=== PATIENT | female | born 1955 | race Caucasian/White ===

== ENCOUNTER 2017-01-12 05:45 | Inpatient (IN) | payer OTHER ==
[2017-01-10 11:38] LABS: EOSINOPHILS # (AUTO) 0.1 K/uL (0-0.4); HEMOGLOBIN 14.3 g/dL (12.0-16.0); MONOCYTES # (AUTO) 0.5 K/uL (0.8-1.0); NEUTROPHILS # (AUTO) 3.3 K/uL (1.8-7.7); RED CELL DISTRIBUTION WIDTH 12.7 % (11.6-13.7)
[2017-01-10 11:42] LABS: BASOPHILS # (AUTO) 0.2 K/uL (0.00-0.22); BASOPHILS % (AUTO) 4.4 % (0.0-2.0); EOSINOPHILS % (AUTO) 2.3 % (0.0-4.0); HEMATOCRIT 43.7 % (36-48); LYMPHOCYTES # (AUTO) 1.5 K/uL (2.5-16.5); LYMPHOCYTES % (AUTO) 26.2 % (20.5-51.1); MEAN CORPUSCULAR HEMOGLOBIN 29 pg (27-31); MEAN CORPUSCULAR HGB CONC 33 g/dL (33-37); MEAN CORPUSCULAR VOLUME 88 fL (80-94); NEUTROPHILS % (AUTO) 58.1 % (42.2-75.2); PLATELET COUNT (AUTO) 205 K/uL (140-450); RED BLOOD CELL COUNT(AUTO) 4.99 MIL/uL (4.20-5.40); WHITE BLOOD COUNT (AUTO) 5.6 K/uL (4.8-10.8)
[2017-01-10 12:11] LABS: ALBUMIN 3.6 g/dL (3.4-5.0); CARBON DIOXIDE 31.1 mmol/L (21-32); CREATININE 0.9 mg/dL (0.6-1.3); POTASSIUM 4.1 mmol/L (3.5-5.1); TOTAL BILIRUBIN 0.6 mg/dL (0.0-1.0)
[~2017-01-12] VITALS: Ht 162.6 cm; Wt 95.3 kg
--- NOTE | 2017-01-12 08:48 | NUR ---
PATIENT HAS BEEN SCREENED AND CATEGORIZED LOW NUTRITION RISK. PATIENT WILL BE SEEN WITHIN 7 DAYS OF ADMISSION. 01/18/[address]
[2017-01-12] MEDS ORDERED: fentaNYL 0.05 MG/ML VIAL ONE (13:07)
[2017-01-12] MEDS ORDERED: MIDAZOLAM 2 MG/2 ML VIAL ONE ×2 (13:07→15:03)
[2017-01-12] MEDS ORDERED: ONDANSETRON 4 MG/2 ML VIAL IVP ONE (13:15)
[2017-01-12] MEDS ORDERED: PROPOFOL 200 MG/20 ML VIAL IV ONE (13:15)
[2017-01-12] MEDS ORDERED: SEVOFLURANE 250 ML BTL INH ONE (13:15)
[2017-01-12] MEDS ORDERED: ONDANSETRON 4 MG/2 ML VIAL IVP PRN ×2 (13:45)
[2017-01-12] MEDS ORDERED: IBUPROFEN 800 MG TAB PO PRN ×2 (13:45)
[2017-01-12] MEDS ORDERED: MORPHINE SULFATE 4 MG/ML SYR IM/IVP PRN ×2 (13:45)
[2017-01-12] MEDS ORDERED: ACETAMINOPHEN/CODEINE 300/30MG 1 TAB PO PRN (13:45)
[2017-01-12] MEDS ORDERED: MORPHINE SULFATE 4 MG/ML SYR ONE ×2 (14:12→14:48)
[2017-01-12] MEDS ORDERED: METOCLOPRAMIDE 10 MG/2 ML INJ VIAL IVP PRN (14:25)
[2017-01-12] MEDS ORDERED: MORPHINE SULFATE 4 MG/ML SYR IVP PRN ×2 (14:25)
[2017-01-12] MEDS ORDERED: MORPHINE SULFATE 2 MG/ML SYR IVP PRN (14:25)
[2017-01-12] MEDS ORDERED: MIDAZOLAM 2 MG/2 ML VIAL IV ONE (14:25)
[2017-01-12] MEDS ORDERED: MIDAZOLAM 2 MG/2 ML VIAL IVP ONE (14:55)
[2017-01-12] MEDS ORDERED: KETOROLAC 30 MG/ML VIAL IVP PRN (17:00)
[2017-01-12] MEDS ORDERED: KETOROLAC 30 MG/ML VIAL ONE (17:37)
[2017-01-13] MEDS: ACETAMINOPHEN/CODEINE 300/30MG 1 TAB PO PRN ×2 (02:52→08:50)
[2017-01-13 09:52] VITALS: BP 119/80
== END 2017-01-13 10:10 | disposition home or self-care (01) | DRG 748 ==
LOC: MMU 05:45 → MFCC 14:41
PROVIDERS: ADMIT Obstetrics & Gynecology; ATTEND Obstetrics & Gynecology
PROC: 0JQC0ZZ Repair Pelvic Region Subcutaneous Tissue and Fascia, Open Approach (ICD-10-PCS; 2017-01-12)
PROC: 0JQC0ZZ Repair Pelvic Region Subcutaneous Tissue and Fascia, Open Approach (ICD-10-PCS; principal; 2017-01-12 08:50)
DX: N81.10 Cystocele, unspecified (principal); E66.01 Morbid (severe) obesity due to excess calories; I10 Essential (primary) hypertension; N39.3 Stress incontinence (female) (male); N81.6 Rectocele; Z68.36 Body mass index [BMI] 36.0-36.9, adult
CPT/HCPCS: 36415; 71010; 80053; 85025; 87081; 93005; J0690; J1885; J2250; J2270; J2405; J2704; J3010; J7030; J7060; J7120; Q0092